=== PATIENT | female | born 1990 | race Caucasian/White ===

== ENCOUNTER → 2017-04-16 | Outpatient (CLI) | payer OTHER | LOC: LAB 15:56 | DX: R42 Dizziness and giddiness (principal) ==

== ENCOUNTER → 2017-09-08 | Outpatient (CLI) | payer OTHER ==
[2017-09-08 10:42] LABS: EOS # 0.2 (0.04-0.40); EOS % 2.1 % (1.0-5.0); HEMATOCRIT 45.5 % (37.0-47.0); LYMPH# 2.6 (1.50-4.00); MEAN CELL VOLUME 89 fl (78-100); MEAN CORPUSCULAR HEMOGLOBIN 29 pg (27-31); MEAN CORPUSCULAR HGB CONC 33 g/dL (33-37); MEAN PLATELET VOLUME 9.2 fl (7.4-10.4); MONO # 0.5 (0.20-0.80); NEU # 3.7 (1.40-6.50); PLATELET COUNT 344 K/mm3 (130-400); RED BLOOD COUNT 5.13 M/mm3 (4.10-5.30)
[2017-09-08 10:59] LABS: ALBUMIN 4.8 g/dL (3.5-5.0); BUN/CREATININE RATIO 19.7 (6.0-26.0); CALCIUM 9.5 mg/dL (8.4-10.2); POTASSIUM 3.9 mmol/L (3.6-5.0); TOTAL BILIRUBIN 0.6 mg/dL (0.2-1.3); TOTAL PROTEIN 8.5 g/dL (6.3-8.2)
[2017-09-08 11:24] LABS: URINE COLOR YELLOW
[2017-09-08 11:25] LABS: URINE APPEARANCE HAZY; URINE BILIRUBIN NEGATIVE (NEGATIVE); URINE BLOOD NEGATIVE (NEGATIVE); URINE GLUCOSE NEGATIVE (NEGATIVE); URINE KETONE NEGATIVE (NEGATIVE); URINE LEUKOCYTE ESTERASE NEGATIVE (NEGATIVE); URINE NITRATE NEGATIVE (NEGATIVE); URINE PROTEIN(semi-quant) NEGATIVE (NEGATIVE); URINE UROBILINOGEN NORMAL (NORMAL)
== END ==
LOC: LAB 10:07
PROVIDERS: Family Medicine
DX: R10.9 Unspecified abdominal pain (principal); E66.09 Other obesity due to excess calories; F33.42 Major depressive disorder, recurrent, in full remission

== ENCOUNTER → 2018-04-19 | Outpatient (CLI) | payer OTHER | LOC: LAB 17:39 | DX: J02.9 Acute pharyngitis, unspecified (principal); R53.83 Other fatigue ==

== ENCOUNTER 2018-04-26 22:36 | Emergency (ER) | payer OTHER ==
[~2018-04-26] VITALS: Ht 162.6 cm; Wt 100.0 kg
[2018-04-27] MEDS ORDERED: ADIPEX-P37.5 M2 PO (00:14)
[2018-04-27] MEDS ORDERED: LAMICTAL150 MG PO (00:14)
[2018-04-27] MEDS ORDERED: ESTARYLLA 35 MC1 TAB PO (00:15)
[2018-04-27] MEDS ORDERED: PRISTIQ ER25 MG PO (00:15)
[2018-04-27] MEDS ORDERED: CYCLOBENZAPRINE10 M1 PO (00:17)
[2018-04-27] MEDS ORDERED: ZOFRAN ODT4 MG PO (00:17)
[2018-04-27 00:22] VITALS: BP 117/82
== END 2018-04-27 00:22 | disposition home or self-care (01) ==
LOC: ED 22:36
DX: M54.2 Cervicalgia (principal); Z79.899 Other long term (current) drug therapy; R42 Dizziness and giddiness
CPT/HCPCS: J1200; J1885; J2360; J2405; J7030

== ENCOUNTER → 2019-01-09 | Outpatient (CLI) | payer OTHER ==
[~2019-01-09] MED LIST: ADIPEX-P37.5 M2 PO; CYCLOBENZAPRINE10 M1 PO; ESTARYLLA 35 MC1 TAB PO; LAMICTAL150 MG PO; PRISTIQ ER25 MG PO; ZOFRAN ODT4 MG PO
== END ==
LOC: RAD 07:38
DX: N63.20 Unspecified lump in the left breast, unspecified quadrant (principal); Z98.890 Other specified postprocedural states

== ENCOUNTER → 2019-02-03 | Outpatient (CLI) | payer OTHER ==
[2019-02-03 15:09] LABS: BASO # 0.1 (0.02-0.10); EOS # 0.1 (0.04-0.40); EOS % 1.9 % (1.0-5.0); HEMATOCRIT 43.5 % (37.0-47.0); HEMOGLOBIN 14.4 g/dL (12.5-16.0); LYMPH# 2.1 (1.50-4.00); MEAN CELL VOLUME 88 fl (78-100); MEAN CORPUSCULAR HEMOGLOBIN 29 pg (27-31); MEAN CORPUSCULAR HGB CONC 33 g/dL (33-37); MEAN PLATELET VOLUME 9.2 fl (7.4-10.4); MONO # 0.7 (0.20-0.80); NEU # 3.8 (1.40-6.50); PLATELET COUNT 290 K/mm3 (130-400); RED BLOOD COUNT 4.94 M/mm3 (4.10-5.30); RED CELL DISTRIBUTION WIDTH 12.8 % (11.5-14.5); WHITE BLOOD COUNT 6.8 K/mm3 (4.8-10.8)
[2019-02-03 15:29] LABS: ALBUMIN 4.4 g/dL (3.5-5.0); POTASSIUM 3.9 mmol/L (3.5-5.1); TOTAL BILIRUBIN 0.3 mg/dL (0.2-1.2); TOTAL PROTEIN 7.4 g/dL (6.4-8.3)
== END ==
LOC: LAB 14:57
PROVIDERS: Physician Assistant
DX: R10.9 Unspecified abdominal pain (principal); R19.7 Diarrhea, unspecified

== ENCOUNTER → 2019-07-19 | Outpatient (CLI) | payer OTHER ==
[~2019-07-19] VITALS: Ht 162.6 cm; Wt 100.0 kg
[2019-07-19 18:56] VITALS: BP 129/89
== END ==
LOC: AMSURD 18:23
DX: Z51.81 Encounter for therapeutic drug level monitoring (principal); Z79.899 Other long term (current) drug therapy
CPT/HCPCS: J1200; J1885; J2360; J7030

== ENCOUNTER → 2019-08-02 | Outpatient (CLI) | payer OTHER ==
[2019-07-19 18:56] VITALS: BP 129/89
[2019-08-02 12:01] LABS: EOS # 0.1 (0.04-0.40); EOS % 1.1 % (1.0-5.0); HEMATOCRIT 42.4 % (37.0-47.0); HEMOGLOBIN 14.2 g/dL (12.5-16.0); LYMPH# 1.9 (1.50-4.00); MEAN CELL VOLUME 90 fl (78-100); MEAN CORPUSCULAR HEMOGLOBIN 30 pg (27-31); MEAN CORPUSCULAR HGB CONC 34 g/dL (33-37); MEAN PLATELET VOLUME 9.2 fl (7.4-10.4); MONO # 0.5 (0.20-0.80); NEU # 3.8 (1.40-6.50); PLATELET COUNT 306 K/mm3 (130-400); RED BLOOD COUNT 4.74 M/mm3 (4.10-5.30); RED CELL DISTRIBUTION WIDTH 12.1 % (11.5-14.5); WHITE BLOOD COUNT 6.3 K/mm3 (4.8-10.8)
[2019-08-02 12:11] LABS: ALBUMIN 4.6 g/dL (3.5-5.0); POTASSIUM 4.6 mmol/L (3.5-5.1)
[2019-08-02 12:13] LABS: TOTAL PROTEIN 7.1 g/dL (6.4-8.3)
[2019-08-02 12:15] LABS: TOTAL BILIRUBIN 0.4 mg/dL (0.2-1.2)
== END ==
LOC: LAB 11:45
PROVIDERS: Family Medicine
DX: E53.9 Vitamin B deficiency, unspecified (principal); R53.83 Other fatigue

== ENCOUNTER → 2019-08-08 | Outpatient (CLI) | payer OTHER ==
[2019-07-19 18:56] VITALS: BP 129/89
== END ==
LOC: RAD 14:25 → LAB 14:25 → RAD 14:30
DX: Z32.01 Encounter for pregnancy test, result positive (principal); G43.909 Migraine, unspecified, not intractable, without status migrainosus

== ENCOUNTER → 2020-03-28 | Outpatient (CLI) | payer OTHER ==
[2019-07-19 18:56] VITALS: BP 129/89
== END ==
LOC: RAD 09:47
DX: S39.92XA Unspecified injury of lower back, initial encounter (principal)

== ENCOUNTER → 2020-08-29 | Outpatient (CLI) | payer OTHER ==
[2019-07-19 18:56] VITALS: BP 129/89
== END ==
LOC: RAD 08:14
DX: N64.1 Fat necrosis of breast (principal); Z98.890 Other specified postprocedural states

== ENCOUNTER → 2020-12-23 | Outpatient (CLI) | payer OTHER ==
[2019-07-19 18:56] VITALS: BP 129/89
[~2020-12-23] MED LIST changes: +EFFEXOR XR150 M1 PO; +GOOD NEIGHBOR200 M3 PO; +IMITREX50 M1 PO; +KETOROLAC10 MG PO
== END ==
LOC: AMSURD 14:58
DX: R00.0 Tachycardia, unspecified (principal)

== ENCOUNTER → 2021-01-14 | Outpatient (CLI) | payer OTHER ==
[2019-07-19 18:56] VITALS: BP 129/89
== END ==
LOC: AMSURD 12:04
DX: R00.2 Palpitations (principal)

== ENCOUNTER → 2021-04-04 | Outpatient (CLI) | payer OTHER | LOC: LAB 09:24 | DX: N39.0 Urinary tract infection, site not specified (principal) ==

== ENCOUNTER 2021-05-08 12:19 | Emergency (ER) | payer OTHER ==
[~2021-05-08] VITALS: Ht 162.6 cm; Wt 95.5 kg
[~2021-05-08 12:19] MED LIST changes: -EFFEXOR XR150 M1 PO; -GOOD NEIGHBOR200 M3 PO; -IMITREX50 M1 PO; -KETOROLAC10 MG PO
[2021-05-08] MEDS ORDERED: CYCLOBENZAPRINE10 M1 PO (12:39)
[2021-05-08] MEDS ORDERED: EFFEXOR XR150 M1 PO (12:40)
[2021-05-08] MEDS ORDERED: IMITREX50 M1 PO (12:40)
[2021-05-08] MEDS ORDERED: KETOROLAC10 MG PO (12:40)
[2021-05-08] MEDS ORDERED: GOOD NEIGHBOR200 M3 PO (12:41)
[2021-05-08 14:24] VITALS: BP 110/88
== END 2021-05-08 14:28 | disposition home or self-care (01) ==
LOC: ED 12:19
DX: S46.811A Strain of other muscles, fascia and tendons at shoulder and upper arm level, right arm, initial encounter (principal); G43.909 Migraine, unspecified, not intractable, without status migrainosus; G44.209 Tension-type headache, unspecified, not intractable; M54.2 Cervicalgia; F32.9 Major depressive disorder, single episode, unspecified; Z79.899 Other long term (current) drug therapy; X58.XXXA Exposure to other specified factors, initial encounter
CPT/HCPCS: J1885

== ENCOUNTER → 2021-11-07 | Outpatient (CLI) | payer OTHER ==
[~2021-11-07] MED LIST changes: +EFFEXOR XR150 M1 PO; +GOOD NEIGHBOR200 M3 PO; +IMITREX50 M1 PO; +KETOROLAC10 MG PO
== END ==
LOC: LAB 07:43
DX: Z32.00 Encounter for pregnancy test, result unknown (principal)

== ENCOUNTER → 2022-03-27 | Outpatient (CLI) | payer OTHER ==
[~2022-03-27] VITALS: Ht 162.6 cm; Wt 95.5 kg
[2022-03-27 08:05] VITALS: BP 129/90
[2022-03-27 09:25] VITALS: BP 127/93
== END ==
LOC: AMSURD 07:45
DX: O26.50 Maternal hypotension syndrome, unspecified trimester (principal); Z3A.00 Weeks of gestation of pregnancy not specified
CPT/HCPCS: J7030

== ENCOUNTER → 2022-05-14 | Outpatient (CLI) | payer OTHER | LOC: VAS 09:46 → RAD 09:46 | DX: M79.662 Pain in left lower leg (principal); M79.89 Other specified soft tissue disorders ==